=== PATIENT | female | born 1995 | race Caucasian/White ===

== ENCOUNTER 2021-03-29 12:33 | Emergency (ER) | payer OTHER, SELFPAY ==
[2021-03-29 12:46] VITALS: BP 121/69; PULSE 86; RESP 18; TEMP 37.1; O2SAT 99
--- NOTE | 2021-03-29 12:56 | ED.EAR ---
HPI - Ear Problem General Chief complaint: Ear Stated complaint: Ear Pain Time Seen by Provider: 03/29/21 12:37 Source: patient Mode of arrival: ambulatory Limitations: no limitations History of Present Illness HPI Narrative: 25-year-old female presents to [facility] with complaints of left ear pain for the past 4 days. Patient has been using warm salt water gargles with minimal relief. Patient denies fever, bodyaches, chills, nausea, vomiting or diarrhea. Patient denies history of ear infections. Patient denies recent travel. Patient denies sick contacts MD Complaint: ear pain Location: left ear Duration: constant Severity: mild Discharge from ear: Reports no Treatment prior to arrival: none Related Data Allergies Allergy/AdvReac Type Severity Reaction Status Date / Time Penicillins AdvReac Nausea and Verified 03/29/21 12:52 Vomiting Review of Systems Constitutional: Constitutional: Denies chills, Denies fatigue, Denies fever(s) and Denies weakness ENT: Denies dysphagia, Denies dizziness and Denies epistaxis Comments: left ear pain Respiratory: Respiratory: Denies cough, Denies dyspnea and Denies wheezing Gastrointestinal: Gastrointestinal: Denies abdominal pain, Denies constipation, Denies diarrhea, Denies nausea and Denies vomiting Integumentary/Breasts: Skin/Breast: Denies rash [facility] Social History Social History (Updated 03/29/21 @ 12:58 by Grecia Barron APRN) Smoking status: Never smoker Comments At time of signature, I agree with nursing past medical, surgical, social and family history. There is no relevant family history pertinent to the presenting complaint. Exam Const: General: healthy appearing and no acute distress Orientation/consciousness: patient oriented x3 HENMT: Head: normal to inspection Ears: Abnormal EAC present erythema on the left and localized and TM abnormal erythematous on the left General nose exam: Normal nares present Face and sinus: normal facial exam Mouth: Yes Normal oral and palatal mucosa present Throat: posterior oropharynx normal and uvula midline Neck: Neck: normal visual inspection Resp: Effort & Inspection: normal respiratory effort Auscultation: clear to auscultation bilaterally Cardio: Rate: regular rate Rhythm: regular rhythm Skin: General skin exam: normal color Rashes: no rashes Neuro: General: patient oriented x3 and moves all extremities Course Vital Signs Vital signs: Vital Signs Temperature 37.1 C 03/29/21 12:46 Pulse Rate 86 03/29/21 12:46 Respiratory Rate 18 03/29/21 12:46 Blood Pressure 121/69 03/29/21 12:46 Pulse Oximetry 99 03/29/21 12:46 Temperature 37.1 C 03/29/21 12:46 Pulse Rate 86 03/29/21 12:46 Respiratory Rate 18 03/29/21 12:46 Blood Pressure 121/69 03/29/21 12:46 Pulse Oximetry 99 03/29/21 12:46 Medical Decision Making MDM Narrative Medical decision making narrative: Patient agrees to use eardrops and take oral antibiotic as prescribed. Patient agrees to alternate Motrin and Tylenol as needed for pain. Patient agrees to follow-up with primary care provider if symptoms not improved Differential Diagnosis Differential Diagnosis: Foreign body, cerumen impaction, viral illness Vital Signs Vital Signs: Vital Signs Temperature 37.1 C 03/29/21 12:46 Pulse Rate 86 03/29/21 12:46 Respiratory Rate 18 03/29/21 12:46 Blood Pressure 121/69 03/29/21 12:46 Pulse Oximetry 99 03/29/21 12:46 Temperature 37.1 C 03/29/21 12:46 Pulse Rate 86 03/29/21 12:46 Respiratory Rate 18 03/29/21 12:46 Blood Pressure 121/69 03/29/21 12:46 Pulse Oximetry 99 03/29/21 12:46 Critical Care Time Critical Care Time Critical Care Time: No Discharge Plan Discharge Clinical Impression: Otitis media Qualifiers: Otitis media type: unspecified Chronicity: acute Qualified Code(s): H66.90 - Otitis media, unspecified, unspecified ear Otitis externa Qualifiers:
== END 2021-03-29 13:06 | disposition home or self-care (01) ==
PROVIDERS: Emergency Provider Nurse Practitioner Family; PCP Internal Medicine Infectious Disease
DX: H60.502 Unspecified acute noninfective otitis externa, left ear (principal)
CPT/HCPCS: 99213; G0463